=== PATIENT | female | born 1980 | race Two or more races ===

== ENCOUNTER 2020-02-22 06:23 | Day surgery (SDC) | payer OTHER ==
[~2020-02-22 06:23] MED LIST: IRON PO; MULTIVITAMINS1 EAC9 PO; VITAMIN C100 MG PO; VITAMIN D PO; VITAMIN D310 MCG/1 M
== END 2020-02-22 16:20 | disposition home or self-care (01) ==
LOC: CIR.AMB 06:23
PROVIDERS: ATTEND Obstetrics & Gynecology
DX: N84.0 Polyp of corpus uteri (principal); Z20.828 Contact with and (suspected) exposure to other viral communicable diseases